=== PATIENT | male | born 1945 | race Caucasian/White ===

== ENCOUNTER → 2020-11-05 | Outpatient (CLI) | payer BC, MEDICARE ==
[~2020-11-05] MED LIST: LVT.15T PO
== END ==
LOC: LABNPT 05:23
PROVIDERS: ATTEND Internal Medicine
DX: Z20.822 Contact with and (suspected) exposure to COVID-19 (principal)
CPT/HCPCS: 87635

== ENCOUNTER → 2020-11-30 | Outpatient (CLI) | payer MEDICARE | LOC: LABNPT 11-27 05:09 | PROVIDERS: ATTEND Internal Medicine | DX: Z20.822 Contact with and (suspected) exposure to COVID-19 (principal) | CPT/HCPCS: 87635 ==